=== PATIENT | female | born 1965 | race Caucasian/White ===

== ENCOUNTER → 2018-09-11 | Outpatient (CLI) | payer OTHER | LOC: M RAD 07:06 | DX: I87.2 Venous insufficiency (chronic) (peripheral) (principal) | CPT/HCPCS: 93970 ==

== ENCOUNTER → 2018-12-11 | Outpatient (CLI) | payer OTHER ==
[~2018-12-11] MED LIST: LEVO75TA4 PO
--- NOTE | 2018-12-12 17:45 | ECGEPIP ---
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
== END ==
LOC: M EKG 17:12
PROVIDERS: ATTEND Anesthesiology
DX: Z01.818 Encounter for other preprocedural examination (principal); E03.9 Hypothyroidism, unspecified; R06.83 Snoring

== ENCOUNTER 2019-01-21 09:43 | Day surgery (SDC) | payer OTHER ==
[~2019-01-21] VITALS: Ht 160 cm; Wt 97.0 kg
[~2019-01-21 09:43] MED LIST changes: +LR 1,000 ML IV ONE
[2019-01-21] MEDS ORDERED: PROPOFOL 200 MG/20 ML VIAL As Ordered ONE (11:53)
[2019-01-21] MEDS ORDERED: MIDAZOLAM INJ 2 MG/2 ML VIAL (J2250) As Ordered ONE (11:53)
[2019-01-21] MEDS ORDERED: fentaNYL 100 MCG/2 ML INJECTION (J3010) As Ordered ONE (11:53)
[2019-01-21] MEDS ORDERED: LIDOCAINE 2% INJ 100 MG/5 ML SDV (FOR ANES.) As Ordered ONE (11:53)
[2019-01-21] MEDS ORDERED: LIDOCAINE 1% SDV INJ 30 ML VIAL As Ordered ONE (12:06)
[2019-01-21] MEDS ORDERED: LIDOCAINE W/EPINEPHRINE 1% 20ML VIAL As Ordered ONE (12:11)
[2019-01-21] MEDS ORDERED: KETOROLAC 60 MG/2 ML VIAL (J1885) As Ordered ONE (13:19)
[2019-01-21 14:05] VITALS: BP 140/80
--- NOTE | 2019-02-10 09:36 | RO ---
DATE OF PROCEDURE: 01/21/2019 ATTENDING SURGEON: Dr. Fantasma Alfaro JACK WINDER: None. PREOPERATIVE DIAGNOSES: 1. Right lower extremity swelling and pain. 2. Right greater saphenous vein venous valvular insufficiency. POSTOPERATIVE DIAGNOSES: 1. Right lower extremity swelling and pain. 2. Right greater saphenous vein venous valvular insufficiency. PROCEDURE: Right greater saphenous vein radiofrequency ablation. INDICATION: The patient is a 53-year-old female with right lower extremity swelling and pain who was found to have right greater saphenous vein venous valvular insufficiency. The patient will undergo a right greater saphenous vein radiofrequency ablation. Risks, benefits and alternative treatment options were discussed with the patient. ANESTHESIA: Local monitored anesthesia care (MAC). ESTIMATED BLOOD LOSS: 20 mL. IV FLUIDS: 600 mL. SPECIMENS: None. COMPLICATIONS: None. DRAINS: None. IMPLANTS: None. PROCEDURE: The patient was taken to the operating room and placed supine on the operating table and then prepped and draped in a standard surgical fashion. The right greater saphenous vein was cannulated in the below knee region using ultrasound guidance. The catheter was advanced through the greater saphenous vein to the saphenofemoral junction under ultrasound guidance and placed 2 cm distal to the saphenofemoral junction. Tumescent solution was injected circumferentially around the greater saphenous vein from the saphenofemoral junction to the below knee puncture site after which the greater saphenous vein was ablated using ultrasound guidance and the ablation catheter from 2 cm distal to the saphenofemoral junction to the below knee puncture site. Catheters and sheaths were then removed. Dressings were applied. The patient tolerated procedure well. All instrument, sponge, and needle counts were correct at the end of the case. There were no complications. Dr. Alfaro was present for and directed the entire case. The patient was transferred to recovery room and subsequently discharged in stable condition. Edited 02/10/2019 @ 1116 [facility]
== END 2019-01-21 14:18 | disposition home or self-care (01) ==
LOC: M SDC 09:43
PROVIDERS: ATTEND Surgery Vascular Surgery
DX: I87.2 Venous insufficiency (chronic) (peripheral) (principal); M79.604 Pain in right leg; E03.9 Hypothyroidism, unspecified; K21.9 Gastro-esophageal reflux disease without esophagitis; R06.83 Snoring; E66.9 Obesity, unspecified; Z68.37 Body mass index [BMI] 37.0-37.9, adult; Z90.710 Acquired absence of both cervix and uterus
CPT/HCPCS: 36475; J1885; J2250; J3010

== ENCOUNTER → 2019-01-29 | Outpatient (CLI) | payer OTHER ==
[~2019-01-29] MED LIST changes: -LR 1,000 ML IV ONE
--- NOTE | 2019-01-29 19:24 | REP ---
RIGHT LOWER EXTREMITY DUPLEX DOPPLER VENOUS ULTRASOUND: Real-time compression and duple Doppler interrogation of the right lower extremity deep venous system is performed. The right common femoral, superficial femoral and popliteal veins are fully compressible with transducer pressure and demonstrates normal spontaneous and phasic flow without evidence of deep venous thrombosis. There is clot throughout the greater saphenous vein as expected. It extends up to the saphenofemoral junction. Electronically Signed by Brannon Mix MD 02/01/2019 04:18 P
== END ==
LOC: M RAD 16:01
PROVIDERS: ATTEND Surgery Vascular Surgery
DX: I83.813 Varicose veins of bilateral lower extremities with pain (principal)